=== PATIENT | female | born 1965 | race American Indian/Alaskan Native ===

== ENCOUNTER 2017-12-25 20:37 | Emergency (ER) | payer OTHER ==
[2017-12-25 23:13] LABS: Basophils # (Auto) 0.1 K/mm3 (0.0-0.1); Basophils % (Auto) 0.9 % (0.0-1.8); Eosinophils % (Auto) 0.3 % (0.0-4.3); Hematocrit 36.3 % (30.3-42.9); Hemoglobin 11.7 gm/dl (10.1-14.3); Lymphocytes # (Auto) 2.9 K/mm3 (1.2-5.4); Lymphocytes % (Auto) 27.2 % (13.4-35.0); Mean Corpuscular HGB Conc 32 % (30-34); Mean Corpuscular Volume 80 fl (79-97); Monocytes # (Auto) 0.8 K/mm3 (0.0-0.8); Monocytes % (Auto) 7.8 % (0.0-7.3); Platelet Count 376 K/mm3 (140-440); Red Blood Count 4.53 M/mm3 (3.65-5.03); Red Cell Distribution Width 19.1 % (13.2-15.2)
[2017-12-25 23:14] LABS: Mean Corpuscular Hemoglobin 26 pg (28-32)
[2017-12-25 23:25] LABS: BUN/Creatinine Ratio 16; Blood Urea Nitrogen 13 mg/dL (7-17); Calcium 9.2 mg/dL (8.4-10.2); Hemolysis Index 1
[2017-12-26 01:38] LABS: Amphetamine Screen,Urine PRESUMPTIVE NEGATIVE; Benzodiazepines Screen,Urine PRESUMPTIVE NEGATIVE; Cannabinoid Screen,Urine PRESUMPTIVE NEGATIVE; Cocaine Screen,Urine PRESUMPTIVE NEGATIVE; Methadone Screen,Urine PRESUMPTIVE NEGATIVE; Opiate Screen,Urine PRESUMPTIVE NEGATIVE
[2017-12-26 01:42] LABS: Bilirubin,Urine NEG (Negative); Blood,Urine NEG (Negative); Color,Urine Yellow (Yellow); Mucus,Urine 2+ /HPF
[2017-12-26] MEDS ORDERED: CATAPRES ONE (05:38)
[2017-12-26] MEDS ORDERED: CATAPRES PO ONE (05:43)
[2017-12-26 06:48] VITALS: BP 140/97
--- NOTE | 2017-12-26 07:15 | Emergency Department Report ---
ED General Adult HPI - General Chief complaint: Medical Clearance Stated complaint: SCHIZOPHRENIC Time Seen by Provider: 12/26/17 06:19 Source: patient Mode of arrival: Ambulatory Limitations: No Limitations - History of Present Illness Initial comments: This is a completely lucid 52-year-old female who states that she was not able to make her appointment to the psychiatrist yesterday. She has also ran out of her blood pressure medicine. She states that she is not hallucinating although she has heard voices in the past. He has a history of schizophrenia. He does take Effexor and Geodon. She ran out of her losartan. She has no active complaints. -: days(s) Severity scale (0 -10): 0 Associated Symptoms: denies other symptoms - Related Data Previous Rx's Medication Instructions Recorded Last Taken Type Losartan [Cozaar] 50 mg PO QDAY #30 tablet 12/26/17 Unknown Rx Venlafaxine HCl [Effexor Xr] 75 mg PO QDAY #30 cap.er.24h 12/26/17 Unknown Rx Ziprasidone [Geodon] 40 mg PO BID #60 capsule 12/26/17 Unknown Rx Allergies Allergy/AdvReac Type Severity Reaction Status Date / Time No Known Allergies Allergy Unverified 12/25/17 22:18 ED Review of Systems ROS: Stated complaint: SCHIZOPHRENIC Other details as noted in HPI Constitutional: denies: chills, fever Eyes: denies: eye pain, eye discharge, vision change ENT: denies: ear pain, throat pain Respiratory: denies: cough, shortness of breath, wheezing Cardiovascular: denies: chest pain, palpitations Endocrine: no symptoms reported Gastrointestinal: denies: abdominal pain, nausea, diarrhea Genitourinary: denies: urgency, dysuria, discharge Musculoskeletal: denies: back pain, joint swelling, arthralgia Skin: denies: rash, lesions Neurological: denies: headache, weakness, paresthesias Psychiatric: denies: anxiety, depression Hematological/Lymphatic: denies: easy bleeding, easy bruising ED Past Medical Hx - Past Medical History Hx Hypertension: Yes Hx Diabetes: Yes Hx Psychiatric Treatment: Yes (SCHIZOPHRENIA) - Social History Smoking Status: Never Smoker Substance Use Type: None - Medications Home Medications: Home Medications Medication Instructions Recorded Confirmed Last Taken Type Losartan [Cozaar] 50 mg PO QDAY #30 tablet 08/14/18 Unknown Rx Venlafaxine HCl [Effexor Xr] 75 mg PO QDAY #30 cap.er.24h 12/26/17 Unknown Rx Ziprasidone [Geodon] 40 mg PO BID #60 capsule 12/26/17 Unknown Rx ED Physical Exam - General Limitations: No Limitations General appearance: alert, in no apparent distress - Head Head exam: Present: atraumatic, normocephalic - Eye Eye exam: Present: normal appearance. Absent: PERRL, EOMI, scleral icterus - ENT ENT exam: Present: mucous membranes moist - Neck Neck exam: Present: normal inspection. Absent: tenderness, meningismus - Respiratory Respiratory exam: Present: normal lung sounds bilaterally. Absent: respiratory distress - Cardiovascular Cardiovascular Exam: Present: regular rate, normal rhythm. Absent: systolic murmur, diastolic murmur, rubs, gallop - GI/Abdominal GI/Abdominal exam: Present: soft, normal bowel sounds. Absent: distended, tenderness, guarding, rebound, rigid - Extremities Exam Extremities exam: Present: normal inspection - Back Exam Back exam: Present: normal inspection. Absent: paraspinal tenderness, vertebral tenderness - Neurological Exam Neurological exam: Present: alert, oriented X3, CN II-XII intact. Absent: motor sensory deficit - Psychiatric Psychiatric exam: Present: normal affect, normal mood - Skin Skin exam: Present: warm, dry, intact, normal color. Absent: rash ED Course Vital Signs 12/25/17 12/25/17 12/26/17 21:54 22:13 05:38 Temperature 98.3 F 98.3 F 98.1 F Pulse Rate 98 H 102 H 91 H Respiratory 18 18 20 Rate Blood Pressure 191/117 191/117 204/115 Blood Pressure [Left] O2 Sat by Pulse 95 99 100 Oximetry 12/26/17 12/26/17 05:43 06:45 Temperature 98 F Pulse Rate 91 H 91 H Respiratory 18 Rate Blood Pressure 201/115 Blood Pressure 140/97 [Left] O2 Sat by Pulse 100 Oximetry - Reevaluation(s) Reevaluation #1: The patient is given 1 Geodon now. She is appropriate for outpatient disposition. She states that she can make an appointment with her primary care physician and psychiatrist. Her blood pressure is now reasonable for discharge. I will renew her losartan as well. She will be given information concerning [facility] just in case she cannot get an appointment with her primary care physician for her blood pressure management. 12/26/17 07:07 Reevaluation #2: I am going to reproduce the patient's venlafaxine dose to 75 mg a day because there are rare reports prolongation of the QT interval at 300 mg daily. I am also going to reduce the Geodon dose to 40 as the patient is not having any psychiatric breakthrough although she is technically noncompliant with these medicines. The patient will be directed to get an EKG and laboratory work while she is on these medications. 12/26/17 07:15 12/26/17 07:17 ED Medical Decision Making - Lab Data Result diagrams: 12/25/17 22:57 12/25/17 22:57 Laboratory Results - last 24 hr 12/25/17 12/25/17 12/25/17 22:57 22:57 22:57 WBC RBC Hgb Hct MCV MCH MCHC RDW Plt Count Lymph % (Auto) [place] % (Auto) Eos % (Auto) Baso % (Auto) Lymph # [place] # Eos # Baso # Seg Neutrophils % Seg Neutrophils # Sodium 135 L Potassium 4.0 Chloride 97.4 L Carbon Dioxide 24 Anion Gap 18 BUN 13 Creatinine 0.8 Estimated GFR > 60 BUN/Creatinine Ratio 16 Glucose 109 H Calcium 9.2 Urine Color Urine Turbidity Urine pH Ur Specific [place] Urine Protein Urine Glucose (UA) Urine Ketones Urine Blood Urine Nitrite Urine Bilirubin Urine Urobilinogen Ur Leukocyte Esterase Urine WBC (Auto) Urine RBC (Auto) U Epithel Cells (Auto) Urine Mucus Salicylates < 0.3 L Urine Opiates Screen Urine Methadone Screen Acetaminophen < 5.0 L Ur Barbiturates Screen Ur Phencyclidine Scrn Ur Amphetamines Screen U Benzodiazepines Scrn Urine Cocaine Screen U Marijuana (THC) Screen Drugs of Abuse Note Plasma/Serum Alcohol 12/25/17 12/25/17 12/26/17 22:57 22:57 00:54 WBC 10.6 RBC 4.53 Hgb 11.7 Hct 36.3 MCV 80 MCH 26 L MCHC 32 RDW 19.1 H Plt Count 376 Lymph % (Auto) 27.2 [place] % (Auto) 7.8 H Eos % (Auto) 0.3 Baso % (Auto) 0.9 Lymph # 2.9 [place] # 0.8 Eos # 0.0 Baso # 0.1 Seg Neutrophils % 63.8 Seg Neutrophils # 6.8 Sodium Potassium Chloride Carbon Dioxide Anion Gap BUN Creatinine Estimated GFR BUN/Creatinine Ratio Glucose Calcium Urine Color Yellow Urine Turbidity Clear Urine pH 6.0 Ur Specific [place] 1.024 Urine Protein 30 mg/dl Urine Glucose (UA) Neg Urine Ketones Tr Urine Blood Neg Urine Nitrite Neg Urine Bilirubin Neg Urine Urobilinogen 4.0 Ur Leukocyte Esterase Neg Urine WBC (Auto) 2.0 Urine RBC (Auto) 1.0 U Epithel Cells (Auto) 2.0 Urine Mucus 2+ Salicylates Urine Opiates Screen Urine Methadone Screen Acetaminophen Ur Barbiturates Screen Ur Phencyclidine Scrn Ur Amphetamines Screen U Benzodiazepines Scrn Urine Cocaine Screen U Marijuana (THC) Screen Drugs of Abuse Note Plasma/Serum Alcohol < 0.01 12/26/17 00:54 WBC RBC Hgb Hct MCV MCH MCHC RDW Plt Count Lymph % (Auto) [place] % (Auto) Eos % (Auto) Baso % (Auto) Lymph # [place] # Eos # Baso # Seg Neutrophils % Seg Neutrophils # Sodium Potassium Chloride Carbon Dioxide Anion Gap BUN Creatinine Estimated GFR BUN/Creatinine Ratio Glucose Calcium Urine Color Urine Turbidity Urine pH Ur Specific [place] Urine Protein Urine Glucose (UA) Urine Ketones Urine Blood Urine Nitrite Urine Bilirubin Urine Urobilinogen Ur Leukocyte Esterase Urine WBC (Auto) Urine RBC (Auto) U Epithel Cells (Auto) Urine Mucus Salicylates Urine Opiates Screen Presumptive negative Urine Methadone Screen Presumptive negative Acetaminophen Ur Barbiturates Screen Presumptive negative Ur Phencyclidine Scrn Presumptive negative Ur Amphetamines Screen Presumptive negative U Benzodiazepines Scrn Presumptive negative Urine Cocaine Screen Presumptive negative U Marijuana (THC) Screen Presumptive negative Drugs of Abuse Note Disclamer Plasma/Serum Alcohol Critical care attestation.: If time is entered above; I have spent that time in minutes in the direct care of this critically ill patient, excluding procedure time. ED Disposition Clinical Impression: Poorly-controlled hypertension Schizophrenia Qualifiers: Schizophrenia type: other Qualified Code(s): F20.89 - Other schizophrenia; F20.8 - Other schizophrenia Disposition: DC-01 TO HOME OR SELFCARE Is pt being admited?: No Does the pt Need Aspirin: No Condition: Stable Instructions: Chronic Hypertension (ED), Schizophrenia (ED) Additional Instructions: Return any acute change or problems. You need to get an EKG test while you're on these type of psychiatric medications. ED a blood test while you're on losartan. See your primary care doctor to have these tests done and for general follow-up. Prescriptions: Losartan [Cozaar] 50 mg PO QDAY #30 tablet Venlafaxine HCl [Effexor Xr] 75 mg PO QDAY #30 cap.er.24h Ziprasidone [Geodon] 40 mg PO BID #60 capsule Referrals: PRIMARY CARE, [Primary Care Provider] - 3-5 Days [facility] [Provider Group] - 3-5 Days usual, psychiatric and primary care [Other] - 3-5 Days Time of Disposition: 07:17
[2017-12-26] MEDS ORDERED: GEODON PO ONE (07:20)
== END 2017-12-26 07:41 | disposition home or self-care (01) ==
LOC: ED 20:37
DX: F20.89 Other schizophrenia (principal); I10 Essential (primary) hypertension; E11.9 Type 2 diabetes mellitus without complications
CPT/HCPCS: 36415; 80048; 80307; 81001; 85025; 99283; G0480; 80320